=== PATIENT | male | born 1980 | race Caucasian/White ===

== ENCOUNTER → 2023-01-31 | Outpatient (REF) | payer OTHER | LOC: M SFHCDERM 17:53 | PROVIDERS: ATTEND Surgery | DX: L72.3 Sebaceous cyst (principal); D17.1 Benign lipomatous neoplasm of skin and subcutaneous tissue of trunk ==

== ENCOUNTER → 2024-08-31 | Outpatient (CLI) | payer OTHER | LOC: M WUC 15:42 | PROVIDERS: ATTEND Chiropractor | DX: M47.812 Spondylosis without myelopathy or radiculopathy, cervical region (principal); M54.2 Cervicalgia ==